=== PATIENT | male | born 1980 | race Caucasian/White ===

== ENCOUNTER 2016-09-16 19:48 | Emergency (ER) | payer OTHER ==
[2016-09-16 19:55] VITALS: BP 127/89
--- NOTE | 2016-09-16 21:02 | UC ---
Throat Pain/Nasal Darinel HPI - HPI Summary HPI Summary: 36 y/o male present to the urgent care c/o of sore throat and fever since yesterday. Patient reports difficulty swallowing and his pain is 8/10 with a fever of 102.7 at home. He has taken ibuprofen which has alleviated his pain. Patient denies SOB, cough, chest pain, [place], ear pain. Pt reports her daughter has been Dx with strep recently. - History of Current Complaint Chief Complaint: UCGeneralIllness Stated Complaint: SORE THROAT,BODY ACHES,FEVER Time Seen by Provider: 09/16/16 20:49 Hx Obtained From: Patient Onset/Duration: Gradual Onset, Lasting Days, Still Present Severity: Moderate Pain Intensity: 8 Pain Scale Used: 0-10 Numeric Cough: None Associated Signs & Symptoms: Positive: Dysphagia, Fever - 102.7Fat home. Negative: Hoarseness, Sinus Discomfort, Nasal Discharge, Vomiting, Rash Related History: Seasonal Allergies - Epiglottits Risk Factors Epiglottis Risk Factors: Negative - Allergies/Home Medications Allergies/Adverse Reactions: Allergies Allergy/AdvReac Type Severity Reaction Status Date / Time No Known Allergies Allergy Verified 12/25/14 18:54 PMH/Surg Hx/FS Hx/Imm Hx Previously Healthy: Yes Endocrine History: Dyslipidemia Cardiovascular History: Hypertension - Surgical History Surgical History: None - Family History Known Family History: Positive: Unknown - FATHER'S SIDE UNKNOWN Negative: Cardiac Disease, Hypertension - Social History Occupation: Employed Full-time Lives: With Family Alcohol Use: Occasionally Substance Use Type: None Smoking Status (MU): Former Smoker Review of Systems Constitutional: Fever Skin: Negative Eyes: Negative ENT: Sore Throat Respiratory: Negative Cardiovascular: Negative Gastrointestinal: Negative Genitourinary: Negative Motor: Negative Neurovascular: Negative Musculoskeletal: Negative Neurological: Negative Psychological: Negative All Other Systems Reviewed And Are Negative: Yes Physical Exam Triage Information Reviewed: Yes Appearance: Well-Appearing, No Pain Distress, Well-Nourished, Obese Vital Signs: Initial Vital Signs Temp 97.9 F 09/16/16 19:51 Pulse 120 09/16/16 19:51 Resp 20 09/16/16 19:51 BP 127/89 09/16/16 19:51 Pulse Ox 99 09/16/16 19:51 Vital Signs Reviewed: Yes Eye Exam: Normal Eyes: Positive: Conjunctiva Clear - PERRLA, EOMI ENT: Positive: Normal ENT inspection, Hearing grossly normal, Pharyngeal erythema - with positive exudate b/l, TMs normal, Tonsillar swelling, Tonsillar exudate - B/L Dental Exam: Normal Neck exam: Normal Neck: Positive: Supple, Nontender, Tenderness @ - anterior cervical lymphadenopathy Respiratory Exam: Normal Respiratory: Positive: Chest non-tender, Lungs clear, Normal breath sounds Cardiovascular Exam: Normal Cardiovascular: Positive: RRR, No Murmur, Pulses Normal Abdominal Exam: Normal Abdomen Description: Positive: Nontender, No Organomegaly, Soft, Bruit. Negative: CVA Tenderness (R), CVA Tenderness (L) Bowel Sounds: Positive: Present Musculoskeletal Exam: Normal Musculoskeletal: Positive: Strength Intact, ROM Intact, No Edema Neurological Exam: Normal Psychological Exam: Normal Skin Exam: Normal Throat Pain/Nasal Course/Dx - Course Assessment/Plan: Sore throat with fever since yesterday. Hx obtained. PE abnormal finding:ENT: Positive: Normal ENT inspection, Hearing grossly normal, Pharyngeal erythema - with positive exudate b/l, TMs normal, Tonsillar swelling , Tonsillar exudate - B/L. Rapid strep ordered, result: positive. Strep pharyngitis. Pt given 2 tabs of Amoxicillin 500mg PO once at the urgent care since pharmacy is closed. Pt tolerated well medication. Pt Rx Amoxicillin 875 mg PO BID x 10 days and Ibuprofen 800mg PO Q8hrs prns to alleviate symptoms, Advised to take with stomach full, and if symptoms do not improve with antibiotic to please return to the urgent care or f/u with PCP for furhter evaluation and treatment. Pt understood and agreed - Differential Dx/Diagnosis Differential Diagnosis/HQI/PQRI: Laryngitis, Otitis Media, Peritonsillar Abscess , Pharyngitis, Tonsillitis, URI Provider Diagnoses: Strep pharyngitis Discharge - Discharge Plan Condition: Stable Disposition: HOME Prescriptions: Amoxicillin (*) [Amoxicillin 875 MG (*)] 875 mg PO BID #19 tab Ibuprofen TAB* [Motrin TAB* 800 MG] 800 mg PO Q6H #20 tab Patient Education Materials: Strep Throat (ED) Referrals: Matt HALL,Kobi Painter [Primary Care Provider] - Additional Instructions: Please take medications as instructed and finish the full course of treatment to avoid recurrent infection. If you do not improve or if symptoms worsen after the course of antibiotics, you should either follow up with your PCP or return to the urgent care for further evaluation and treatment.
[2016-09-16] MEDS ORDERED: Amoxicillin CAP* 500 MG PO ONE (21:19)
== END 2016-09-16 22:01 | disposition home or self-care (01) ==
LOC: UCEAST 19:48
DX: J02.0 Streptococcal pharyngitis (principal); I10 Essential (primary) hypertension; E78.5 Hyperlipidemia, unspecified; Z87.891 Personal history of nicotine dependence
CPT/HCPCS: 87651; 99212; A9270-GY; G0463

== ENCOUNTER 2016-09-21 07:06 | Emergency (ER) | payer OTHER ==
[2016-09-21] MEDS ORDERED: NS 0.9% 1000 ML* 1,000 ML IV ONE (07:52)
[2016-09-21] MEDS ORDERED: cefTRIAXone(*) 1 GM in NS 0.9% 50 ML* 50 ML IVPB ONE (07:52)
[2016-09-21] MEDS ORDERED: Dexamethasone IV* 4 MG/ML 1 ML (4 MG) IV SLOW PU ONE (07:53)
[2016-09-21] MEDS ORDERED: cefTRIAXone VIAL(*) 1,000 MG in NS 0.9% 50 ML* 50 ML IVPB ONE (08:12)
[2016-09-21] MEDS ORDERED: cefTRIAXone VIAL(*) 1,000 MG VIAL ONE (08:16)
[2016-09-21] MEDS ORDERED: Ibuprofen TAB* 600 MG PO ONE (08:41)
[2016-09-21 09:09] VITALS: BP 162/90
--- NOTE | 2016-09-21 10:26 | UC ---
I, Oh,Soohsebas, scribed for Ronaldo Owens MD on 09/21/16 at 0755 . Throat Pain/Nasal Darinel HPI - HPI Summary HPI Summary: This 36 y/o male presents to [facility] for persistent sore throat since 6 days ago. Positive right ear ache and jaw pain. Pt reports fever and general myalgia that have been resolved. Positive sore throat, white sore spot on roof of mouth, jaw pain, nasal congestion, and right ear pain. Pt was recently dx with strep 5 days ago at [facility] and is currently on 5th day abx. PMHx also includes recent dental taoism. - History of Current Complaint Chief Complaint: UCRespiratory Stated Complaint: SORE THROAT Time Seen by Provider: 09/21/16 07:29 Hx Obtained From: Patient, Medical Records Onset/Duration: Gradual Onset Cough: None Associated Signs & Symptoms: Positive: Hoarseness, Fever - Allergies/Home Medications Allergies/Adverse Reactions: Allergies Allergy/AdvReac Type Severity Reaction Status Date / Time No Known Allergies Allergy Verified 09/21/16 07:11 Home Medications: Home Medications Lisinopril [Zestril 5 MG-] 5 mg PO DAILY 09/21/16 [History Confirmed 09/21/16] PMH/Surg Hx/FS Hx/Imm Hx Cardiovascular History: Hypertension Psychological History: Anxiety - Surgical History Surgical History: None - Family History Known Family History: Negative: Cardiac Disease, Hypertension - Social History Alcohol Use: Occasionally Substance Use Type: None Smoking Status (MU): Former Smoker Review of Systems Constitutional: Fever - resolved since onset 6 days ago Skin: Negative Eyes: Negative ENT: Ear Ache - right Respiratory: Negative Cardiovascular: Negative Gastrointestinal: Negative Genitourinary: Negative Motor: Negative Neurovascular: Negative Musculoskeletal: Myalgia - general, currently resolved, Other: - jaw pain Neurological: Negative Psychological: Negative All Other Systems Reviewed And Are Negative: Yes Physical Exam Triage Information Reviewed: Yes Vital Signs: Initial Vital Signs Temp 98.1 F 09/21/16 07:12 Pulse 94 09/21/16 07:12 Resp 16 09/21/16 07:12 BP 148/95 09/21/16 07:12 Pulse Ox 99 09/21/16 07:12 Vital Signs Reviewed: Yes - Additional Comments The patient is well-nourished in no acute distress and in no acute pain. The skin is warm and dry and skin color reflects adequate perfusion. HEENT: The head is normocephalic and atraumatic. The pupils are equal and reactive. The conjunctivae are clear and without drainage. Positive rhinorrhea.. The external ears are intact. The ear canals are patent and without drainage. The tympanic membranes are intact. Uvula shifted to left. Tonsilar swelling extended to hard plate. White spot on tonsil Neck is supple with full range of motion and non-tender. There are no carotid bruits. There is no neck vein distension. Respiratory: Chest is non-tender. Lungs are clear to auscultation and breath sounds are symmetrical and equal. Cardiovascular: Hear is regular rate and rhythm. There is no murmur or rub auscultated. There is no peripheral edema and pulses are symmetrical and equal. Abdomen: The abdomen is soft and non-tender. There are normal bowel sounds heard in all four quadrants and there is no organomegaly palpated. Musculoskeletal: There is no back pain noted. Extremities are non-tender with full range of motion. There is good capillary refill. There is no peripheral edema or calf tenderness elicited. Neurological: Patient is alert and oriented to person, place and time. The patient has symmetrical motor strength in all four extremities. Cranial nerves are grossly intact. Deep tendon reflexes are symmetrical and equal in all four extremities. Psychiatric: The patient has an appropriate affect and does not exhibit any anxiety or depression. Re-Evaluation - Re-Evaluation First Eval Re-Evaluation Time: 07:55 Comment: Updated pt with ENT consultation. Throat Pain/Nasal Course/Dx - Course Assessment/Plan: Pt was treated for Strep throat a week ago at Urgent Care. Pt presents today with increased pain and swelling of throat. Positive muffled speech. Pt is evaluated for peritonsillar abscees vs cellutlis. Pt was given 8 mg of decadron, rocephin, and NS IV. Dr. Braswell (ENT) was consulted, and he agrees to see pt later today. - Differential Dx/Diagnosis Differential Diagnosis/HQI/PQRI: Peritonsillar Abscess, Pharyngitis, Other - cellulitis Provider Diagnoses: 1) peritonsillar abscess 2) sore throat - Physician Notification/Consults Discussed Patient Care With: Slava Braswell Time Discussed With Above Provider: 07:49 Discharge - Discharge Plan Condition: Stable Disposition: HOME Patient Education Materials: Peritonsillar Abscess (ED) Referrals: Slava Braswell MD [Medical Doctor] - As Soon As Possible Matt HALL,Kobi Painter [Primary Care Provider] - Additional Instructions: Be sure to follow up with Dr. Braswell today. The documentation as recorded by the alinaibAnselmo talavera Soohyun accurately reflects the service I personally performed and the decisions made by me, Ronaldo Owens MD.
== END 2016-09-21 09:40 | disposition home or self-care (01) ==
LOC: UCEAST 07:06
DX: J36 Peritonsillar abscess (principal); J02.9 Acute pharyngitis, unspecified; Z87.891 Personal history of nicotine dependence
CPT/HCPCS: 96361; 96365; 96375; 99212; A9270-GY; G0463; J0696; J1100